=== PATIENT | male | born 1945 | race Caucasian/White ===

== ENCOUNTER 2017-06-01 11:15 | Outpatient (CLI) | payer MEDICARE, OTHER ==
--- NOTE | 2017-06-01 17:28 | PET ---
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 Exam requested for restaging. TECHNIQUE: PET scanning with CT attenuation correction was performed from the vertex through the proximal thigh s following the intravenous administration of 11.5 millicuries of 15-fluorodeoxyglucose in the right antecubital fossa. Imaging was performed after an uptake interval of 79 minutes. COMPARISON: None. CORRELATION: None. FINDINGS: No dariel hypermetabolism is seen in the neck, chest, axillae, abdomen, pelvis or inguinal regions. N o parenchymal lung nodules, liver, adrenal or skeletal lesions are identified. There is physiologic activity in the brain, vocal cords, GI and tracts. CT scan used for attenuation correct demonstrates no evidence of pleural effusions or ascites. 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 IMPRESSION: No evidence of metastatic disease. POS: [facility]
== END 2017-06-01 11:16 | disposition home or self-care (01) ==
LOC: PET 11:15
PROVIDERS: ATTEND Otolaryngology
DX: C07 Malignant neoplasm of parotid gland (principal); E04.1 Nontoxic single thyroid nodule; J34.89 Other specified disorders of nose and nasal sinuses
CPT/HCPCS: 78815; A9552